=== PATIENT | female | born 1990 | race Caucasian/White ===

== ENCOUNTER 2016-06-25 10:54 | Emergency (ER) | payer OTHER ==
--- NOTE | 2016-06-25 11:08 | ER Document Report ---
ED Syncope and Near Syncope - General Mode of Arrival: Ambulatory Information source: Patient TRAVEL OUTSIDE OF THE [place] IN LAST 30 DAYS: No - HPI Patient complains to provider of: Fainting Context: Other - see above <ELVIS LUKE - Last Filed: 06/25/16 11:15> <JOEY VASQUEZ - Last Filed: 06/25/16 15:41> - General Chief Complaint: Passed Out Prior to Arrival Stated Complaint: POSSIBLE SYNCOPE Time Seen by Provider: 06/25/16 10:59 Notes: Patient is a 25 year old female, with a past medical history including ADHD, who presents to the emergency department via EMS complaining of passing out prior to arrival. Patient states that she was going to the bathroom when she started feeling faint and edmond to go lay down on the bed but passed out before getting there. Per , patient fell and was unconscious for about 6 minutes and it took her around 15 minutes to get back to normal. Patient states that she currently feels weak and has a headache. Patient also complains of having a headache at night for the past couple of weeks usually in the front of her head but last night the pain was in a band around her skull. Patient denies urinary incontinence, tremors, burry vision, numbness, tingling, and dysuria. Patient currently takes adderall and Prozac. PCP: Dr. Radhames Hutson (ELVIS LUKE) - Related Data Allergies/Adverse Reactions: No Known Allergies Allergy (Verified 06/25/16 11:05) Past Medical History - General Information source: Patient - Social History Smoking Status: Unknown if Ever Smoked Family History: Reviewed & Not Pertinent Psychiatric Medical History: Reports: Hx Attention Deficit Hyperactivity Disorder Past Surgical History: Reports: Hx Appendectomy, Hx Section, Hx Tonsillectomy - and addenoids - Immunizations Hx Diphtheria, Pertussis, Tetanus Vaccination: Yes <ELVIS LUKE - Last Filed: 06/25/16 11:15> Review of Systems - Review of Systems Constitutional: See HPI, Weakness EENT: denies: Blurred vision Cardiovascular: See HPI, Syncope Respiratory: No symptoms reported Gastrointestinal: No symptoms reported Genitourinary: denies: Dysuria, Incontinence Female Genitourinary: No symptoms reported Musculoskeletal: No symptoms reported Skin: No symptoms reported Hematologic/Lymphatic: No symptoms reported Neurological/Psychological: See HPI, Headaches. denies: Numbness, Tingling, Tremor -: Yes All other systems reviewed and negative <ELVIS LUKE - Last Filed: 06/25/16 11:15> Physical Exam - Vital signs Interpretation: Normal - General General appearance: Appears well, Alert - HEENT Head: Normocephalic, Atraumatic - Respiratory Respiratory status: No respiratory distress Chest status: Nontender Breath sounds: Normal Chest palpation: Normal - Cardiovascular Rhythm: Regular Heart sounds: Normal auscultation Murmur: No - Abdominal Inspection: Normal Distension: No distension Bowel sounds: Normal Tenderness: Nontender Organomegaly: No organomegaly - Extremities General upper extremity: Normal inspection General lower extremity: Normal inspection - Neurological Neuro grossly intact: Yes Cognition: Normal Orientation: AAOx4 [place] Coma Scale Eye Opening: Spontaneous [place] Com[place] Scale Verbal: Oriented [place] Coma Scale Motor: Obeys Commands [place] Coma Scale Total: 15 Speech: Normal - Psychological Associated symptoms: Normal affect, Normal mood - Skin Skin Temperature: Warm Skin Moisture: Dry Skin Color: Normal <TIDEREJEELVIS - Last Filed: 06/25/16 11:15> Course <TIELVIS - Last Filed: 06/25/16 11:15> - Laboratory Result Diagrams: 06/25/16 11:42 06/25/16 11:42 <JOEY VASQUEZ - Last Filed: 06/25/16 15:41> - Re-evaluation Re-evalutation: 06/25/16 13:05 Patient presents emergency department via EMS. She said she got up quickly today to go to the bathroom felt lightheaded and dizzy went to sit on the toilet got back up to go to the room and passed out. Significant other said he came to the bedside he did not notice any seizure activity she was not incontinent of stool or urine and there was no postictal period. Patient does not have a history of seizures in the past. She does have chronic irregular menstrual period heavy bleeding and has never been anemic before. She states that she had a gradual headache which is bandlike frontal sharp and stabbing for the past 5-7 days not the worst headache of her life not associated with blurred vision double vision chest pain neck pain or stiffness. There is no family history of brain aneurysms. Headache was not present today prior to the syncopal event and is very mild on examination now. On physical examination she is awake alert no acute distress normal baseline mental status no neurological deficits. She is not tachypneic or tachycardic. EKG shows sinus rhythm with no acute ST segment elevation or depression. No arrhythmia identified on EKG. CT of the head is negative for acute pathology chest x-ray is negative for acute pathology abdomen is soft normal laboratory evaluation not . Patient is anemic and gets lightheaded or dizzy when she gets up too quickly. At this point I do not think she needs to be admitted to the hospital differential diagnosis includes vasovagal syncope and anemia. I do not think she warrants a lumbar puncture to rule out brain aneurysm. Also do not identify any arrhythmias but have a follow-up with primary care physician first thing on Monday. For further evaluation assessment she is not to drive or operate any machinery and discussed reasons for ED return sooner (JOEY VASQUEZ) - Vital Signs Vital signs: Temp Pulse Resp BP Pulse Ox 97.5 F 85 21 H 111/65 100 06/25/16 10:55 06/25/16 12:05 06/25/16 13:01 06/25/16 13:01 06/25/16 13:01 - Laboratory Laboratory results interpreted by id: 06/25/16 06/25/16 11:42 11:55 Hgb 9.6 L Hct 30.6 L MCV 64 L MCH 20.2 L MCHC 31.4 L RDW 17.2 H Urine Protein 100 H Urine Blood SMALL H Ur Leukocyte Esterase SMALL H - EKG Interpretation by Me Additional EKG results interpreted by me: 06/25/16 13:05 EKG interpreted by myself to reveal sinus rhythm at [address] segment elevation or depression. No acute arrhythmia identified on EKG. (JOEY VASQUEZ) Discharge <ELVIS LUKE - Last Filed: 06/25/16 11:15> <JOEY VASQUEZ - Last Filed: 06/25/16 15:41> - Discharge Clinical Impression: anemia Syncope Qualifiers: Syncope type: unspecified Qualified Code(s): R55 - Syncope and collapse Condition: Stable Disposition: HOME, SELF-CARE Additional Instructions: Syncopal Episode Syncope (fainting or near-fainting) can occur from many different health problems. Or it can be a simple fainting spell requiring no treatment. It is safe for you to go home, but further evaluation will likely be necessary. Your work-up may include tests for internal bleeding, heart disease, medication problems, or near-strokes. Tests are not always required, however, depending on the nature of your problem. The warning signs of an impending faint include: dizziness, lightheadedness , nausea, hot flashes, tingling, and weakness. If this happens, lay down and put your feet up, then wait until all of these symptoms have passed before standing up again. If these episodes become recurrent, or if you develop chest pain, heart palpitations, mental confusion, blurred vision, or headache, then you should call the physician, or go to the emergency room. Anemia You have been found to have a significant anemia (a lower than normal amount of red blood cells). Anemia can be due to iron deficiency, vitamin deficiency, abnormal bleeding, or internal diseases. Usually, further tests are necessary to find the exact cause of the anemia. The most common cause of anemia is iron deficiency, often brought on by blood loss. This can be treated with iron supplements. If this appears to be the most likely cause, iron tablets may be prescribed even before all tests are complete. Contact the doctor at once if you note black or tarry-looking stools, bloody vomiting, shortness of breath, chest pain, or faintness. Headache The physician does not feel that the headache you are experiencing has a serious underlying cause. Most headaches are due to emotional stress, with resultant muscle tension (tension headache). Occasionally, headaches are secondary to changes in the blood vessels of the scalp (vascular headache and migraine headache). Sometimes, a headache is the first symptom of another developing illness, such as a viral infection. You have no evidence of stroke, bleeding, meningitis, or other serious cause of your headache. The treatment of headaches varies with the severity and cause of the pain. Not all headaches need pain shots. In fact, there is evidence that using narcotics for headaches may make them worse in the long run. The physician will determine the therapy that's in your best interest. If you develop a fever, if the headache is different from any you've previously experienced, or if the headache progressively worsens, then call your physician at once or go to the emergency room. Referrals: RADHAMES HUTSON MD [Primary Care Provider] - (Follow-up with your primary care physician on Monday return for increased worsening or new symptoms do not drive or operate machinery) Scribe Attestation: 06/25/16 13:09 I personally performed the services described in the documentation reviewed the documentation recorded by my scribe in my presence and it accurately and completely records my words and actions (JOEY VASQUEZ) Scribe Documentation - Scribe Written by Jodie:: jodie Dalh, 06/25/16, [id number] acting as scribe for :: Elvin <ELVIS LUKE - Last Filed: 06/25/16 11:15>
[2016-06-25 12:16] LABS: ABSOLUTE EOSINOPHILS # (AUTO) 0.1 10^3/uL (0.0-0.6); ABSOLUTE LYMPHOCYTES (AUTO) 1.2 10^3/uL (0.5-4.7); ABSOLUTE MONOCYTES (AUTO) 0.5 10^3/uL (0.1-1.4); ABSOLUTE NEUT (AUTO) 5.3 10^3/uL (1.7-8.2); BASOPHILS % (AUTO) 0.5 % (0-2); HEMATOCRIT 30.6 % (36.0-47.0); HEMOGLOBIN 9.6 g/dL (12.0-15.5); HGB HCT DIFFERENCE -1.8; LYMPHOCYTES % (AUTO) 17.1 % (13-45); MEAN CORPUSCULAR HEMOGLOBIN 20.2 pg (27.0-33.4); MEAN CORPUSCULAR HGB CONC 31.4 g/dL (32.0-36.0); MONOCYTES % (AUTO) 6.9 % (3-13); RED BLOOD COUNT 4.74 10^6/uL (3.72-5.28); RED CELL DISTRIBUTION WIDTH 17.2 % (11.5-14.0); SEGMENTED NEUTROPHILS % (AUTO) 74.5 % (42-78); WHITE BLOOD COUNT 7.2 10^3/uL (4.0-10.5)
[2016-06-25 12:26] LABS: AMORPHOUS SEDIMENT,URINE TRACE /HPF; APPEARANCE,URINE CLOUDY; BILIRUBIN,URINE NEGATIVE (NEGATIVE); GLUCOSE, URINE NEGATIVE (NEGATIVE); KETONES,URINE NEGATIVE (NEGATIVE); LEUKOCYTE ESTERASE,URINE SMALL (NEGATIVE); NITRITE,URINE NEGATIVE (NEGATIVE); PROTEIN,URINE 100 mg/dL (NEGATIVE); URINE SPECIFIC GRAVITY 1.017; UROBILINOGEN,URINE NEGATIVE mg/dL (<2.0)
[2016-06-25 12:29] LABS: ANION GAP 12 (5-19); BLOOD UREA NITROGEN 9 mg/dL (7-20); CALCIUM 9.1 mg/dL (8.4-10.2); CARBON DIOXIDE 26 mmol/L (22-30); CHLORIDE 104 mmol/L (98-107); CREATININE RESULT 0.55 mg/dL (0.52-1.25); GLUCOSE 84 mg/dL (75-110); POTASSIUM 4.2 mmol/L (3.6-5.0); SODIUM 141.5 mmol/L (137-145)
[2016-06-25 12:36] LABS: URINE BARBITURATES SCREEN NEGATIVE; URINE METHADONE SCREEN NEGATIVE; URINE OPIATES LOW NEGATIVE; URINE PHENCYCLIDINE SCREEN NEGATIVE
[2016-06-25 12:46] LABS: ANISOCYTOSIS 1+; HYPOCHROMASIA 2+; MICROCYTOSIS 3+; OVALOCYTES SLIGHT; POIKILOCYTOSIS 1+; POLYCHROMASIA SLIGHT; TEAR DROP CELLS SLIGHT
[2016-06-25 12:49] LABS: MEAN CORPUSCULAR VOLUME 64 fl (80-97)
[2016-06-25 13:17] VITALS: BP 111/65
--- NOTE | 2016-06-25 17:51 | EKG REPORT ---
SEVERITY:- BORDERLINE ECG - SINUS RHYTHM BORDERLINE PROLONGED QT INTERVAL : Confirmed by: Marizol Najera MD 25-Jun-2016 17:50:17
[2016-06-27 14:56] LABS: PATH REVIEW PATHOLOGIST REVIEWED
== END 2016-06-25 13:20 | disposition home or self-care (01) ==
LOC: ER 10:54
DX: D64.9 Anemia, unspecified (principal); R55 Syncope and collapse; N92.1 Excessive and frequent menstruation with irregular cycle; R51 Headache; R53.1 Weakness; F90.9 Attention-deficit hyperactivity disorder, unspecified type; Z79.899 Other long term (current) drug therapy
CPT/HCPCS: 36415; 70450; 71010; 80048; 80307; 81001; 81025; 84484; 85025; 85379; 93005; 93010; 99285